=== PATIENT | female | born 1990 | race Caucasian/White ===

== ENCOUNTER 2024-12-19 08:33 | Day surgery (SDC) | payer OTHER ==
[2024-12-15 11:24] VITALS: BMI 34.7
[2024-12-15 12:07] LABS: Hematocrit 42.9 % (34.9-44.5); Hemoglobin 14.3 g/dL (12.0-15.5); Mean Corpuscular Hemoglobin 29.2 pg (27.0-33.0); Mean Corpuscular Volume 87.7 fL (81.6-98.3); Platelet Count 269 10x3/uL (150-450); Red Blood Cell (RBC) Count 4.89 10x6/uL (3.90-5.03); White Blood Cell (WBC) Count 8.06 10x3/uL (3.5-10.5)
[2024-12-15 12:17] LABS: BHCG - Serum Negative (NEGATIVE); Pregs Control Background? CLEAR/WHITE (CLR/WHITE); Pregs Control Bar Appear? YES (CONTROL BAR)
[2024-12-19] MEDS ORDERED: Lidocaine 1% PF 5 ML VIAL ONE (09:33)
[2024-12-19] MEDS ORDERED: Ondansetron PF 4 MG/2 ML Vial ONE (09:33)
[2024-12-19] MEDS ORDERED: PROPOFOL 40 ML ONE (09:33)
[2024-12-19] MEDS ORDERED: Methylergonovine 0.2 MG/ML VIAL ONE (10:01)
[2024-12-19] MEDS ORDERED: Famotidine/PF 20 mg/2ml Vial ONE (10:18)
[2024-12-19] MEDS ORDERED: Ketorolac Tromethamine 30 MG (1 mL) VIAL ONE (10:26)
[2024-12-19] MEDS ORDERED: Lidocaine 1% w/Epinephrine 1:200K 30 ML VIAL ONE (10:44)
[2024-12-19] MEDS ORDERED: Ferric Subsulfate 8 ML TOPICAL SOLN ONE (11:20)
[2024-12-19] MEDS ORDERED: oxyCODONE 5 MG TAB ONE (12:11)
== END 2024-12-19 12:55 | disposition home or self-care (01) ==
LOC: CSHSDC 08:33
PROVIDERS: ATTEND Obstetrics & Gynecology
PROC: 0UBC7ZZ Excision of Cervix, Via Natural or Artificial Opening (ICD-10-PCS; principal; 2024-12-19)
DX: N87.1 Moderate cervical dysplasia (principal); Z91.018 Allergy to other foods; Z88.8 Allergy status to other drugs, medicaments and biological substances
CPT/HCPCS: 36415; 84703; 85027; 86850; 86900; 86901; 88307; J1100; J1308; J1885; J2210; J2250; J2405; J2704; J3010